=== PATIENT | female | born 1965 ===

== ENCOUNTER 2021-05-24 06:56 | Emergency (ER) | payer OTHER ==
[~2021-05-24] VITALS: Ht 157.5 cm; Wt 96.2 kg
[2021-05-24] MEDS ORDERED: XANAX2 MG PO (07:14)
[2021-05-24] MEDS ORDERED: PAXIL20 MG PO (07:14)
== END 2021-05-24 10:56 | disposition home or self-care (01) ==
LOC: ER 06:56
DX: B34.9 Viral infection, unspecified (principal); Z20.822 Contact with and (suspected) exposure to COVID-19